=== PATIENT | male | born 1970 | race Caucasian/White ===

== ENCOUNTER 2019-02-28 08:04 | Day surgery (SDC) | payer OTHER ==
[2019-02-21 11:30] VITALS: BMI 26.6
--- NOTE | 2019-02-28 07:28 | OP ---
Operative Note - Note: Operative Date: 02/28/19 Pre-Operative Diagnosis: Right shoulder labral tear Operation: Right shoulder lapral repair with distal clavicle excision Post-Operative Diagnosis: Same as Pre-op Surgeon: Amarjit Escobar Psychological Operations Specialist: Donna Jerez Anesthesiologist/DICTIONARY EDITOR: Christo Sr Anesthesia: General Operative Report Dictated: Yes
[2019-02-28] MEDS ORDERED: ROPIVACAINE HCL 0.5% 30ML VIAL ONE (09:45)
[2019-02-28] MEDS ORDERED: MIDAZOLAM HCL 2 MG/2 ML SINGLE DOSE VIAL ONE (09:45)
[2019-02-28] MEDS ORDERED: DEXAMETHASONE SOD PHOSPHATE/PF 10 MG/ML SDV ONE (09:45)
[2019-02-28] MEDS ORDERED: EPINEPHrine 1:1,000 1 MG/1 ML - 30ML VIAL (INJECTION) ONE (10:09)
[2019-02-28] MEDS ORDERED: PROPOFOL 20 ML ONE ×2 (11:12)
[2019-02-28] MEDS ORDERED: ONDANSETRON 4 MG/2 ML VIAL IVPUSH PRN (13:30)
[2019-02-28] MEDS ORDERED: oxyCODONE HCL 5 MG TABLET PO PRN (13:30)
[2019-02-28] MEDS ORDERED: LACTATED RINGERS SOLUTION 1,000 ML IV SCH (13:30)
[2019-02-28 13:43] VITALS: TEMP 98.7
[2019-02-28] MEDS ORDERED: oxyCODONE HCL 5 MG TABLET ONE (14:24)
[2019-02-28 15:30] VITALS: BP 132/78; PULSE 90
--- NOTE | 2019-03-01 18:58 | OP ---
DATE OF OPERATION: 02/28/2019 SURGEON: Amarjit Escobar MD ALUMINUM SIDING APPLICATOR: CHIKIS Moya, whose skillful assistance was necessary for the safe and timely performance of this procedure. Ms. Jerez was able to provide positioning, drive the camera, assist in the passage of sutures as well as the insertion of orthopedic fixation hardware. PREOPERATIVE DIAGNOSIS: Right shoulder superior labral tear from anterior to posterior tear, distal clavicle arthritis. POSTOPERATIVE DIAGNOSIS: Right shoulder superior labral tear from anterior to posterior tear, distal clavicle arthritis, shoulder impingement. PROCEDURE: Right shoulder arthroscopy with distal clavicle excision, subacromial decompression, superior labral tear from anterior to posterior repair. ANESTHESIA: Regional plus general. POSTOPERATIVE CONDITION: Stable. COMPLICATIONS: None. IMPLANTS: [employer] knotless x1. INDICATIONS: This is a pleasant 49-year-old who had been suffering from right shoulder pain. He failed to improve after more conservative means. He was indicated for operative care. Operative treatment alternatives were discussed including continued physical therapy, repeat injections, oral medications. Discussed medical risks of the surgery such as heart attack, stroke, DVT, PE and . We discussed surgical risks such as bleeding, infection, neurovascular injury, need for further surgery, postoperative pain and stiffness, permanent loss of motion, repeat tear or failure to heal of the labral tear. We discussed postoperative rehabilitation protocol. We reviewed use of perioperative antibiotic and DVT prophylaxis. I addressed all the patient's questions and concerns. He voiced understanding and elected to proceed. PROCEDURE: Patient was brought to the operating room where he was placed into the beach-chair position after administration of general anesthetic. He previously had been given a block in the preoperative holding area. Care was taken to maintain neutral cervical spine position, padding of the lower extremities and avoiding excessive hip flexion. The arm was examined demonstrating full range of motion and good stability. Patient was now prepped and draped in the usual sterile fashion. A preoperative dose of antibiotics was given and the usual timeout procedure was performed. The shoulder portal and bony landmarks were marked out. The posterior viewing portal was established. The arthroscope was passed into the joint. Examination of the glenoid surface demonstrated some superior fissuring and degenerative change. There was a diffuse frayed tear of the superior labrum. There was thickening of the MGHL as well as the labral foramen anteriorly consistent with Jossie complex. The biceps appeared unremarkable. There was some mild fraying about the superior subscapularis. Supraspinatus and infraspinatus attachments were unremarkable. The humeral cartilage was unremarkable. The posterior and inferior labrum was unremarkable. The anterior portal was then established with spinal needle localization. Superior labrum was debrided. Probing of the labrum demonstrated it was grossly unstable and, therefore, it was decided to perform a 1 anchor repair to avoid any excessive tension and potentially stave off loss of motion. The glenoid bed was debrided utilizing a shaver. A suture was passed utilizing a 90-degree suture passer. This was then inserted into the anchor which was fixed to the anterior superior labrum. The labrum was now probed and now found to be stable. The area of the labral foramen was not incorporated into the repair. The arthroscope was then passed to the subacromial space. Here, there was impingement morphology present with undersurface wear of the acromion. There was a V-shaped right bursitis as well. Given these findings, a subacromial decompression was performed. This was done first using electrocautery followed by the shaver as well as the bur. Attention was now turned to the AC joint. Here, the cartilage disk was removed with electrocautery. Utilizing the shaver as well as a bur 1 cm of distal clavicle was removed. Multiple portals were used to view the joint to confirm that there was adequate bone resection. At this point, the excess fluid was withdrawn from the joint. The portals were sutured using 3-0 nylon. Sterile dressings were placed. The patient was extubated and transferred to recovery room in stable condition. Kvng [id number]
== END 2019-02-28 15:15 | disposition home or self-care (01) ==
LOC: FASU 08:04
PROVIDERS: ATTEND Orthopaedic Surgery Sports Medicine
PROC: 0PB94ZZ Excision of Right Clavicle, Percutaneous Endoscopic Approach (ICD-10-PCS; 2019-02-28)
PROC: 0RNJ4ZZ Release Right Shoulder Joint, Percutaneous Endoscopic Approach (ICD-10-PCS; 2019-02-28)
PROC: 0MM14ZZ Reattachment of Right Shoulder Bursa and Ligament, Percutaneous Endoscopic Approach (ICD-10-PCS; principal; 2019-02-28 11:44)
DX: S43.431A Superior glenoid labrum lesion of right shoulder, initial encounter (principal); M19.011 Primary osteoarthritis, right shoulder; M75.41 Impingement syndrome of right shoulder; X58.XXXA Exposure to other specified factors, initial encounter; Y93.9 Activity, unspecified; Y92.9 Unspecified place or not applicable
CPT/HCPCS: 94760